=== PATIENT | female | born 1940 | race Caucasian/White ===

== ENCOUNTER 2016-07-14 21:28 | Emergency (ER) | payer OTHER ==
[~2016-07-14] VITALS: Ht 162.6 cm; Wt 47.6 kg
[2016-07-14] MEDS ORDERED: LISI-603 PO (21:50)
[2016-07-14] MEDS ORDERED: CHOL10005 PO (21:50)
[2016-07-14] MEDS ORDERED: QUET50TA PO (21:50)
[2016-07-14] MEDS ORDERED: ATEN50TA PO (21:50)
[2016-07-14] MEDS ORDERED: CLON0.5T4 PO (21:50)
[2016-07-14] MEDS ORDERED: OLAN5TAB3 PO (21:50)
[2016-07-14] MEDS ORDERED: DOCU-25 PO (21:50)
[2016-07-14] MEDS ORDERED: DIVA125T2 PO (21:50)
[2016-07-14] MEDS ORDERED: AMLO5TAB2 PO (21:50)
[2016-07-14] MEDS ORDERED: SERT100T PO (21:50)
[2016-07-14] MEDS ORDERED: OLAN2.5T3 PO (21:50)
[2016-07-14 21:52] LABS: BASOPHILS % (AUTO) 0.3 % (0.0-2.0); EOSINOPHILS # (AUTO) 0.1 K/uL (0.0-0.7); HEMOGLOBIN 12.7 G/DL (12.0-16.0); LYMPHOCYTES # (AUTO) 1.7 K/UL (0.8-4.8); LYMPHOCYTES % (AUTO) 12.5 % (20.5-51.5); MEAN CORPUSCULAR HEMOGLOBIN 28.4 UUG (27.0-31.0); MEAN CORPUSCULAR HGB CONC 34 g/dL (32.0-37.0); MEAN CORPUSCULAR VOLUME 82.6 FL (81.0-99.0); MONOCYTES # (AUTO) 0.6 K/UL (0.1-1.30); MONOCYTES % (AUTO) 4.5 % (0.0-11.0); NEUTROPHILS # (AUTO) 11.1 K/UL (1.8-8.9); NEUTROPHILS % (AUTO) 81.7 % (38.5-71.5); PLATELET COUNT (AUTO) 332 K/UL (150-450); RED BLOOD CELL COUNT(AUTO) 4.48 MIL/UL (4.2-5.4); WHITE BLOOD COUNT (AUTO) 13.5 K/UL (4.0-11.2)
[2016-07-14 22:05] LABS: CARBON DIOXIDE 29 mmol/L (21-32); CHLORIDE 99 mmol/L (98-107); CREATININE 1.1 mg/dL (0.6-1.3); GLUCOSE 145 mg/dL (74-106); POTASSIUM 3.7 mmol/L (3.5-5.1); UREA NITROGEN, BLOOD 29 mg/dL (7-18)
[2016-07-14 22:11] LABS: ALANINE AMINOTRANSFERASE 24 U/L (14-59); ALKALINE PHOSPHATASE 63 U/L (50-136); ASPARTATE AMINOTRANSFERASE 23 U/L (15-37); BILIRUBIN,DIRECT < 0.1 mg/dL (0.0-0.2); BILIRUBIN,TOTAL 0.2 mg/dL (0.2-1.0); TOTAL PROTEIN, SERUM 7.2 g/dL (6.4-8.2)
[2016-07-14] MEDS ORDERED: IV NORMAL SALINE 1000 ML BAG IV ONE (22:15)
--- NOTE | 2016-07-14 22:39 | NUR ---
Pt biba by ambulance for [facility] fall with head injury. No c-collar in place. Pt denied neck pain. Pt denies LOC and is able to recall the event. Per EMS pt was ortho-static on scene. Per family pt had "shock" therapy earlier today. Pt placed on monitor, in NSR. BP WNL. Pt alert and oriented x 4. Pt seen by MD. Labs drawn and sent. Xrays obtains, ekg obtained. Fluid bolus infusing freely to gravity
--- NOTE | 2016-07-14 23:35 | NUR ---
Pt resting in position of comfort for self with eyes closed, resp even and unlabored. No obvious signs of distress at this time.
--- NOTE | 2016-07-15 00:25 | NUR ---
Pt ambulated to and from with steady gait, no assistance required. Pt sitting up, eating and drinking with no noted problems. No coughing and no choking noted. Pt appears improved from first arrival to ER. Initially pt slow to respond, difficulty following conversation and maintaining linear thought. However pt was alert and oriented x3. Pt appears more alert and is able to maintain and follow conversation. Pt to be transferred to [facility], awaiting further details from [facility].
[2016-07-15 00:31] LABS: *BILIRUBIN,URIN NEGATIVE (NEGATIVE); *BLOOD, URINE NEGATIVE (NEGATIVE); *CLARITY,URINE CLEAR (CLEAR); *COLOR,URINE YELLOW (YELLOW); *KETONES,URINE NEGATIVE (NEGATIVE); *PROTEIN,URINE NEGATIVE (NEGATIVE); *UROBILINOGEN,URINE 0.2 E.U./dl (NORMAL); LEUKOCYTE ESTERASE ,URINE TRACE (NEGATIVE); NITRITE, URINE NEGATIVE (NEGATIVE); PH,URINE 5.5 (5.0-8.0); UGLUCOSE NEGATIVE (NEGATIVE)
[2016-07-15 00:35] LABS: BACTERIA,URINE FEW /HPF (NONE SEEN); RBC,URINE NONE SEEN /HPF (0-3); SQUAMOUS EPITHELIAL CELL,UR NONE SEEN /HPF (NONE SEEN); WBC,URINE 0-3 /HPF (0-3)
--- NOTE | 2016-07-15 01:06 | NUR ---
Pt to be transferred to [facility] ER. Dr.Yang deedee GARCIA. Ambulance eta [id number]. Number to call report [phone]. [place] [facility] claim # [id number]
--- NOTE | 2016-07-15 02:36 | NUR ---
EMS arrived at bedside. Upon entering room pt appeared startled. Pt didnt remember she was going to be transferred to [place], pt informed again that she was being transferred and reason why. Pt requested her and was reminded he went home to sleep and will see her at a later time. Report called to CHRISTOPHER Roberts in the [facility] ER. Pt appeared more calm, less anxious, less restless upon leaving ER with EMS for transfer.
== END 2016-07-15 02:50 | disposition short-term general hospital (02) ==
LOC: ER 21:31
DX: I95.9 Hypotension, unspecified (principal); S00.83XA Contusion of other part of head, initial encounter; I10 Essential (primary) hypertension; F32.9 Major depressive disorder, single episode, unspecified; C50.919 Malignant neoplasm of unspecified site of unspecified female breast; W18.30XA Fall on same level, unspecified, initial encounter; Y93.89 Activity, other specified; Y92.89 Other specified places as the place of occurrence of the external cause; Y99.8 Other external cause status
CPT/HCPCS: 36415; 70450; 71010; 72125; 80048; 80076; 81001; 84484; 85025; 85730; 86850; 86900; 86901; 93005; 96360; 99285; A4663; J7030; 70030-TC